=== PATIENT | female | born 1955 | race African-American/Black ===

== ENCOUNTER → 2016-12-20 | Outpatient (CLI) | payer BC, OTHER ==
[~2016-12-20] VITALS: Ht 170.2 cm; Wt 98.0 kg
[~2016-12-20] MED LIST: ASPIRIN81 M2 PO; ATORVASTATIN CA40 MG PO; ATORVASTATIN CA80 MG PO; HYZAAR 100-12.1 EACH PO; IBUPROFEN 800800 M1 PO; IMDUR 30 MG TAB30 MG PO; METOPROLOL SUCC25 M1 PO; MOBIC15 MG PO; PROTONIX40 M2 PO; RANEXA1000 MG PO; SPIRIVA INH; TAZTIA XT180 MG PO
--- NOTE | ~2016-12-20 | HPC ---
[facility] [address] [place] [address] PAIN MANAGEMENT CONSULTATION Name: FARRAH PLATA Room #: REG [facility]#: [id number] Admission: 12/20/16 Attend Phys: Sung Plata MD Discharge: Date of : 51 Report #: [id number] THIS REPORT FOR: //name// CC: Aron Lewis DATE OF SERVICE: 12/20/2016 FOLLOWUP COMPLAINT: The pain was much better and still remains better, but I am still having pain. FOLLOWUP HISTORY: The patient is a 60-year-old female who has been seen in the pain clinic because of lumbar radiculopathy. She underwent an epidural steroid injection at the last visit. She returns today indicating that her pain improved after the last injection. She is able to engage in activities of daily living with much less discomfort. She is having less pain in both legs. Pain is in the anterior thigh up high. She notes that standing around and doing other activities still exacerbates her discomfort, but much less so than the last time. PHYSICAL EXAMINATION: Blood pressure 144/82, pulse 66, respiratory rate 16, room air O2 saturation is 99%. The patient has pain and discomfort in lower portion of back with pain radiating into the L2-L3 area of her thighs. The right thigh can be more problematic than the left at this juncture. She rates her pain as a 5/10. IMPRESSION: 1. Lumbar radiculopathy involving the L2-L3/L3-L4 distribution of her anterior thigh, left as well as right. Improved by greater than 50% after the last epidural steroid injection. 2. Hypertension. 3. Hyperlipidemia. 4. Coronary artery disease. RECOMMENDATIONS: We discussed treatment options with the patient. Risks and benefits of an epidural steroid injection were again reviewed. Possible complications were discussed. The patient elects to proceed. PROCEDURE NOTE: The patient was placed in the prone position. Fluoroscopy was used to identify the L2-L3 area. This area had been sterilely prepped with Betadine and infiltrated with 0.25% bupivacaine. Total of 80 mg Depo-Medrol, 40 mg triamcinolone and 2 mL of 0.25% bupivacaine was injected. The patient tolerated the procedure well. She remained in the pain clinic for an appropriate amount of time. She will follow up in the future as needed. We would like to thank you for letting us participate in her care. We hope she [address] [address] PAIN MANAGEMENT CONSULTATION Name: FARRAH PLATA [id number] Admission: 12/20/16 Attend Phys: Sung Plata MD Discharge: Date of : 51 Report #: [id number] continues to improve. A script for Mobic 15 mg 1 p.o. q. day has been written. She will call us if she has any problems with her medications. <ELECTRONICALLY SIGNED> By: Sung Plata MD 01/02/17 [id number] Sung Plata MD /angelica
[2016-12-20 12:44] VITALS: BP 144/82
== END | disposition home or self-care (01) ==
LOC: PAIN 07:24
DX: M54.16 Radiculopathy, lumbar region (principal); I10 Essential (primary) hypertension; E78.5 Hyperlipidemia, unspecified; I25.10 Atherosclerotic heart disease of native coronary artery without angina pectoris; F17.200 Nicotine dependence, unspecified, uncomplicated

== ENCOUNTER → 2018-03-13 | Outpatient (CLI) | payer BC, OTHER | LOC: MRI 12:43 | DX: J32.2 Chronic ethmoidal sinusitis (principal); H70.11 Chronic mastoiditis, right ear ==

== ENCOUNTER → 2020-03-30 | Outpatient (CLI) | payer OTHER | LOC: SJCVC 10:46 | PROVIDERS: ATTEND Internal Medicine Cardiovascular Disease | DX: I45.10 Unspecified right bundle-branch block (principal); R94.31 Abnormal electrocardiogram [ECG] [EKG]; I25.119 Atherosclerotic heart disease of native coronary artery with unspecified angina pectoris; J44.9 Chronic obstructive pulmonary disease, unspecified; I10 Essential (primary) hypertension; E78.00 Pure hypercholesterolemia, unspecified; E78.5 Hyperlipidemia, unspecified; F17.210 Nicotine dependence, cigarettes, uncomplicated; Z79.82 Long term (current) use of aspirin; Z79.899 Other long term (current) drug therapy; Z82.49 Family history of ischemic heart disease and other diseases of the circulatory system ==

== ENCOUNTER → 2020-10-18 | Outpatient (CLI) | payer OTHER | LOC: SJCVC 13:11 | PROVIDERS: ATTEND Internal Medicine Cardiovascular Disease | DX: R94.31 Abnormal electrocardiogram [ECG] [EKG] (principal); I25.119 Atherosclerotic heart disease of native coronary artery with unspecified angina pectoris; I10 Essential (primary) hypertension; E78.00 Pure hypercholesterolemia, unspecified; F17.210 Nicotine dependence, cigarettes, uncomplicated; Z79.82 Long term (current) use of aspirin; Z79.899 Other long term (current) drug therapy ==

== ENCOUNTER → 2021-04-18 | Outpatient (CLI) | payer OTHER | LOC: SJCVC 13:37 | PROVIDERS: ATTEND Internal Medicine Cardiovascular Disease | DX: R94.31 Abnormal electrocardiogram [ECG] [EKG] (principal); I45.2 Bifascicular block; I25.119 Atherosclerotic heart disease of native coronary artery with unspecified angina pectoris; J44.9 Chronic obstructive pulmonary disease, unspecified; I10 Essential (primary) hypertension; E78.00 Pure hypercholesterolemia, unspecified; E78.5 Hyperlipidemia, unspecified; F17.210 Nicotine dependence, cigarettes, uncomplicated; Z90.710 Acquired absence of both cervix and uterus; Z88.8 Allergy status to other drugs, medicaments and biological substances; Z79.82 Long term (current) use of aspirin; Z79.899 Other long term (current) drug therapy; Z82.49 Family history of ischemic heart disease and other diseases of the circulatory system ==

== ENCOUNTER → 2021-10-05 | Outpatient (CLI) | payer OTHER | LOC: SJCVC 13:31 | PROVIDERS: ATTEND Internal Medicine Cardiovascular Disease | DX: R94.31 Abnormal electrocardiogram [ECG] [EKG] (principal); I45.2 Bifascicular block; I25.119 Atherosclerotic heart disease of native coronary artery with unspecified angina pectoris; J44.9 Chronic obstructive pulmonary disease, unspecified; I10 Essential (primary) hypertension; E78.00 Pure hypercholesterolemia, unspecified; E78.5 Hyperlipidemia, unspecified; F17.210 Nicotine dependence, cigarettes, uncomplicated; Z88.8 Allergy status to other drugs, medicaments and biological substances; Z79.82 Long term (current) use of aspirin; Z79.899 Other long term (current) drug therapy ==

== ENCOUNTER → 2021-10-31 | Outpatient (CLI) | payer OTHER | LOC: ULTRA 10:53 | PROVIDERS: ATTEND Family Medicine | DX: R60.0 Localized edema (principal); M25.461 Effusion, right knee ==